=== PATIENT | female | born 1950 | race Hispanic/Latino ===

== ENCOUNTER 2021-03-13 13:04 | Outpatient (CLI) | payer MEDICARE ==
--- NOTE | 2021-03-14 08:19 | Mammography Report ---
DIGITAL SCREENING MAMMOGRAM WITH TOMOSYNTHESIS WITH CAD, 03/13/2021 CLINICAL INFORMATION / INDICATION: Routine Screening Mammography. TECHNIQUE: Digital bilateral 2D and 3D mammography with tomosynthesis was obtained in the craniocaud al and mediolateral oblique projections. Computer-Aided Detection (CAD) analysis was used for interp retation of this study. COMPARISON: 02/16/2019 FINDINGS: Breast Density: The breasts are heterogeneously dense, which may obscure small masses. No dominant mass, suspicious calcifications, or architectural distortion in either breast. Postsurgical scar, right breast. Overall, no interval change. IMPRESSION: No mammographic evidence of malignancy. Follow up recommendation: Routine yearly BI-RADS Category 2: Benign. A "normal" or negative report should not discourage follow up or biopsy of a clinically significant f inding. A written summary of these findings will be mailed to the patient. The patient will be entered into a mammography reporting system which will generate a reminder letter for the patient's next appointmen t at the appropriate interval. The [employer] recommends yearly mammograms starting at age 40 and continuing as l damon as a woman is in good health. Breast MRI is recommended for women with an approximate 20-25% or greater lifetime risk of breast cancer, including women with a strong family history of breast or ova riky cancer or who have been treated for Hodgkin's disease. Signer Name: Farnaz Adames MD Signed: 03/14/2021 8:15 AM Workstation Name: [email or web address]
== END 2021-03-13 13:05 | disposition home or self-care (01) ==
LOC: SPVWC 13:04
PROVIDERS: ATTEND Surgery
DX: Z12.31 Encounter for screening mammogram for malignant neoplasm of breast (principal); N64.89 Other specified disorders of breast
CPT/HCPCS: 77063; 77067

== ENCOUNTER 2022-04-23 09:07 | Outpatient (CLI) | payer MEDICARE ==
--- NOTE | 2022-04-23 13:46 | Mammography Report ---
BILATERAL DIGITAL DIAGNOSTIC MAMMOGRAM CONVENTIONAL, 04/23/2022 LEFT LIMITED BREAST ULTRASOUND CLINICAL INFORMATION / INDICATION: Left breast nipple discharge for one to 2 months TECHNIQUE: Digital bilateral mammographic imaging was performed. Limited ultrasound was performed. COMPARISON: Comparison is with prior exams dated back to 2018. FINDINGS: Breast Density: The breasts are extremely dense, which lowers the sensitivity of mammography. MAMMOGRAPHIC FINDINGS: There is a focal group of microcalcifications in the upper outer quadrant of t he right breast posteriorly which are indeterminate on spot magnification views. The left breast is u nremarkable. ULTRASOUND FINDINGS: Targeted ultrasound evaluation was performed of the area of interest. Sonograp hic evaluation of the left breast was targeted to the periareolar region. No sonographic abnormalitie s are noted. IMPRESSION: 1. No mammographic or sonographic abnormality is identified to explain the patient's nipple discharge . If discharge persists, surgical consult may be useful. 2. Indeterminate microcalcifications in the right breast for which stereotactic biopsy is recommended . Follow up recommendation: Biopsy BI-RADS Category 4: Suspicious for Malignancy. A "normal" or negative report should not discourage follow up or biopsy of a clinically significant f inding. A written summary of these findings will be mailed to the patient. The patient will be entered into a mammography reporting system which will generate a reminder letter for the patient's next appointmen t at the appropriate interval. According to the [employer](ACR), yearly mammograms are recommended starting at ag e 40 and continuing as long as a woman is in good health. Breast MRI is recommended for women with an approximately 20-25% or greater lifetime risk of breast c ancer, including women with a strong family history of breast or ovarian cancer and women who have be en treated for Hodgkin's disease. The ACR recommends yearly screening MRI in patients with a history of breast cancer who have extremel y dense or heterogeneously dense fibroglandular tissue as well in patients who were diagnosed with br east cancer under the age of 50. Signer Name: Anna Cabrera MD, Ph.D Signed: 04/23/2022 1:42 PM Workstation Name: [id number]
--- NOTE | 2022-04-24 17:45 | Ultrasound Report ---
This study was dictated in combination with the diagnostic mammogram, please refer to that for respec tive findings and follow-up recommendations. Signer Name: Audra Topete MD Signed: 04/24/2022 5:41 PM Workstation Name: [email or web address]
== END 2022-04-23 09:08 | disposition home or self-care (01) ==
LOC: SPVWC 09:07
PROVIDERS: ATTEND Surgery
DX: R92.1 Mammographic calcification found on diagnostic imaging of breast (principal); N64.52 Nipple discharge
CPT/HCPCS: 77066